=== PATIENT | female | born 1940 | race Two or more races ===

== ENCOUNTER 2021-01-01 20:11 | Inpatient (IN) | payer OTHER ==
[~2021-01-01] VITALS: Ht 160 cm; Wt 81.2 kg
[~2021-01-01 20:11] MED LIST: ALLO100T2 PO; AMLO-258 PO; ATEN-72 PO; ATOR40TA28 PO; CALC0.2521 PO; CLOP75TA60 PO; FURO40 PO; GLIP10 PO; HYDR25TA84 PO; LISI-894 PO; PRED20 PO; TERA5CAP77 PO
[2021-01-01 20:28] LABS: BASOPHILS % (AUTO) 0.9 % (0.0-2.0); HEMATOCRIT 32.1 % (36-46); HEMOGLOBIN 10.3 g/dL (12.0-16.0); LYMPHOCYTES # (AUTO) 3.1 K/uL (1.0-4.8); LYMPHOCYTES % (AUTO) 40.9 % (22.0-44.0); MEAN CORPUSCULAR VOLUME 91 fL (80-100); MONOCYTES # (AUTO) 0.8 K/uL (0.1-1.0); NEUTROPHILS # (AUTO) 3.3 K/uL (1.8-7.7); NEUTROPHILS % (AUTO) 43.2 % (40.0-70.0); PLATELET COUNT (AUTO) 254 K/uL (150-450); RED BLOOD CELL COUNT(AUTO) 3.54 MIL/uL (4.00-5.20); RED CELL DISTRIBUTION WIDTH 15.6 % (11.5-14.5)
[2021-01-01 20:40] LABS: CALCIUM, TOTAL 8.7 mg/dL (8.8-10.5); CREATININE 2.81 mg/dL (0.60-1.30); POTASSIUM 4.1 mmol/L (3.5-5.1)
[2021-01-01 20:41] LABS: ABG CARBOXYHEMOGLOBIN 0.3 % (0.0-1.5); ABG METHEMOGLOBIN 0.3 % (0.0-1.5); ABG OXYGEN SATURATION 99.6 % (95.0-98.0); SOURCE, BLOOD GAS ARTERIAL; TEMPERATURE, FAHRENHEIT, BG 98.6 FAHREN (96.0-98.6)
[2021-01-01] MEDS ORDERED: [UNRECOGNIZED DRUG - CODE] PO (20:42)
[2021-01-01] MEDS ORDERED: CHL25 PO (20:42)
[2021-01-01 20:44] LABS: ABG A-A DIFF O2 222.5 mmHg (10-20.0); ABG BASE EXCESS -6.7 mmol/L (-2.0-3.0); ABG HCO3 19.2 mmol/L (22.0-26.0); ABG OXYGEN CONTENT 15.6 mL/dL (15.0-23.0); ABG PCO2 47 mmHg (35-45); ABG TOTAL HEMOGLOBIN 10.3 G/dL (12.0-18.0); O2 DEVICE,BLOOD GAS BIPAP (ROOM AIR); SITE, BLOOD GAS RT RADIAL
[2021-01-01] MEDS ORDERED: ISOS10TA16 PO (20:44)
[2021-01-01] MEDS ORDERED: FUROSEMIDE 40 MG/4 ML VIAL IVP ONE (21:00)
[2021-01-01] MEDS ORDERED: ONDANSETRON HCL 4 MG/2 ML VIAL IVP PRN (21:00)
[2021-01-01 21:05] LABS: ALBUMIN 3.7 g/dL (3.4-5.0); BILIRUBIN,TOTAL 0.2 mg/dL (0.1-1.0)
[2021-01-01 21:14] LABS: COVID AG,FIA SOURCE NASOPHARYNGEAL
[2021-01-01] MEDS ORDERED: OXYC-26 PO (21:18)
[2021-01-01] MEDS: ACETAMINOPHEN 325 MG TABLET PO PRN (21:35)
[2021-01-01] MEDS ORDERED: BUMETANIDE 0.25 MG/ML 4 ML VIAL IVP ONE (21:45)
[2021-01-01 22:08] LABS: HEMOGLOBIN A1C 5.9 % (3.8-5.6)
[2021-01-01] MEDS ORDERED: DEXTROSE 50%-WATER 25 GM/50 ML SYRINGE IVP PRN (22:15)
[2021-01-01] MEDS ORDERED: *CLINICAL-LEVOFLOXACIN IVPB DOSING CLINICAL ONE (22:15)
[2021-01-01] MEDS ORDERED: HYDROmorphone 2 MG/ML VIAL IVP PRN (22:15)
[2021-01-01 22:17] LABS: % IRON SATURATION 17.3 % (22-44); RETICULOCYTE % (AUTO) 1.1 % (0.5-2.3)
[2021-01-01] MEDS ORDERED: LEVOFLOXACIN 500 MG/D5% WATER 100 ML IV ONE (22:30)
[2021-01-01 22:46] LABS: LACTIC ACID 2.9 mmol/L (0.4-2.0)
[2021-01-01] MEDS: NITROGLYCERIN 2% (1 GM=INCH) PACKET TP SCH (22:49)
[2021-01-01] MEDS ORDERED: ALBUTEROL SULFATE 2.5 MG/0.5 ML NEB SOLUTION NEB PRN (23:45)
[2021-01-01] MEDS: HEPARIN SODIUM,PORCINE 5,000 UNITS/ML VIAL SQ SCH (23:51)
[2021-01-02] VITALS (7 sets, daily range): BP systolic 135–159; BP diastolic 63–73
[2021-01-02] MEDS ORDERED: 0.9% SODIUM CHLORIDE 15 ML NEB SOLUTION NEB ONE (00:27)
[2021-01-02] MEDS: ACETAMINOPHEN 325 MG TABLET PO PRN (01:18)
[2021-01-02] MEDS ORDERED: HYDROmorphone 2 MG/ML VIAL IVP ONE (04:00)
[2021-01-02] MEDS: NITROGLYCERIN 2% (1 GM=INCH) PACKET TP SCH ×4 (06:08→23:33)
[2021-01-02] MEDS ORDERED: HYDROmorphone 2 MG/ML VIAL IVP PRN (06:15)
[2021-01-02] MEDS: INSULIN LISPRO 100 UNITS/ML SQ PRN ×2 (06:53→17:48)
[2021-01-02 07:10] LABS: CALCIUM, TOTAL 8.6 mg/dL (8.8-10.5); CREATININE 2.66 mg/dL (0.60-1.30); POTASSIUM 4.7 mmol/L (3.5-5.1)
[2021-01-02] MEDS: ETHYL ALCOHOL 62% ANTISEPTIC NASAL INHALANT 0.6 ML AMPUL NASAL SCH ×2 (08:20→20:59)
[2021-01-02] MEDS: AmLODIPine BESYLATE 10 MG TABLET PO SCH (08:21)
[2021-01-02] MEDS: ALLOPURINOL 100 MG TABLET PO SCH (08:21)
[2021-01-02] MEDS: HEPARIN SODIUM,PORCINE 5,000 UNITS/ML VIAL SQ SCH (08:21)
[2021-01-02] MEDS: CHLORTHALIDONE 25 MG TABLET PO SCH (08:22)
[2021-01-02] MEDS: HydrALAZINE HCL 50 MG TABLET PO SCH ×2 (08:22→20:59)
[2021-01-02] MEDS: CLOPIDOGREL BISULFATE 75 MG TABLET PO SCH (08:22)
[2021-01-02] MEDS: PredniSONE 20 MG TABLET PO SCH (08:22)
[2021-01-02] MEDS: CALCITRIOL 0.25 MCG CAPSULE PO SCH (08:22)
[2021-01-02] MEDS: TERAZOSIN HCL 5 MG CAPSULE PO SCH (08:22)
[2021-01-02] MEDS ORDERED: ISOSORBIDE DINITRATE 10 MG TABLET PO SCH (09:00)
[2021-01-02] MEDS ORDERED: ETHACRYNIC ACID 25 MG TABLET PO SCH (09:00)
[2021-01-02] MEDS ORDERED: ATORVASTATIN CALCIUM 40 MG TABLET PO SCH (09:00)
[2021-01-02] MEDS ORDERED: ATENOLOL 50 MG TABLET PO SCH (09:00)
[2021-01-02] MEDS ORDERED: HEPARIN SODIUM 25000 UNITS/D5W 250 ML IV PRN (10:15)
[2021-01-02] MEDS ORDERED: HEPARIN SODIUM,PORCINE 5,000 UNITS/ML VIAL IVP ONE (10:15)
[2021-01-02] MEDS ORDERED: HEPARIN SODIUM,PORCINE 5,000 UNITS/ML VIAL IVP PRN ×2 (10:15)
[2021-01-02 10:49] LABS: BASOPHILS % (AUTO) 0.4 % (0.0-2.0); EOSINOPHILS % (AUTO) 0 % (1.0-6.0); HEMATOCRIT 29.2 % (36-46); HEMOGLOBIN 9.5 g/dL (12.0-16.0); LYMPHOCYTES # (AUTO) 0.5 K/uL (1.0-4.8); LYMPHOCYTES % (AUTO) 7.4 % (22.0-44.0); MEAN CORPUSCULAR HEMOGLOBIN 29.3 pg (26.0-34.0); MEAN CORPUSCULAR HGB CONC 32.6 G/dL (31.0-37.0); MEAN CORPUSCULAR VOLUME 90 fL (80-100); MONOCYTES # (AUTO) 0.2 K/uL (0.1-1.0); MONOCYTES % (AUTO) 2.8 % (2.0-9.0); NEUTROPHILS # (AUTO) 6.5 K/uL (1.8-7.7); PLATELET COUNT (AUTO) 225 K/uL (150-450); RED BLOOD CELL COUNT(AUTO) 3.25 MIL/uL (4.00-5.20); RED CELL DISTRIBUTION WIDTH 15.4 % (11.5-14.5)
[2021-01-02 10:51] LABS: NEUTROPHILS % (AUTO) 89.4 % (40.0-70.0)
[2021-01-02 11:08] LABS: INR 1.1 (0.9-1.1); PROTHROMBIN TIME 11.2 SEC (9.4-11.6)
[2021-01-02 11:13] LABS: GLUCOSE,POINT OF CARE 185 MG/DL (70-110)
[2021-01-02] MEDS: ASPIRIN 81 MG DR TABLET PO SCH (11:20)
[2021-01-02 14:46] LABS: GLUCOSE,POINT OF CARE 124 MG/DL (70-110)
[2021-01-02 19:22] LABS: GLUCOSE,POINT OF CARE 148 MG/DL (70-110)
[2021-01-02] MEDS: ETHACRYNIC ACID 25 MG TABLET PO SCH (20:59)
[2021-01-02] MEDS: METOPROLOL TARTRATE 25 MG TABLET PO SCH (20:59)
[2021-01-02] MEDS ORDERED: TERAZOSIN HCL 5 MG CAPSULE PO SCH (21:00)
[2021-01-02 21:28] LABS: GLUCOSE,POINT OF CARE 90 MG/DL (70-110)
[2021-01-03] VITALS: BP 143/62
[2021-01-03 03:18] LABS: BASOPHILS % (AUTO) 0.3 % (0.0-2.0); EOSINOPHILS % (AUTO) 0 % (1.0-6.0); HEMATOCRIT 30.3 % (36-46); HEMOGLOBIN 9.7 g/dL (12.0-16.0); LYMPHOCYTES # (AUTO) 1.1 K/uL (1.0-4.8); LYMPHOCYTES % (AUTO) 8.5 % (22.0-44.0); MEAN CORPUSCULAR HEMOGLOBIN 28.6 pg (26.0-34.0); MEAN CORPUSCULAR VOLUME 90 fL (80-100); MONOCYTES % (AUTO) 7.8 % (2.0-9.0); NEUTROPHILS # (AUTO) 10.6 K/uL (1.8-7.7); NEUTROPHILS % (AUTO) 83.4 % (40.0-70.0); PLATELET COUNT (AUTO) 225 K/uL (150-450); RED BLOOD CELL COUNT(AUTO) 3.39 MIL/uL (4.00-5.20); RED CELL DISTRIBUTION WIDTH 15.2 % (11.5-14.5)
[2021-01-03 03:32] LABS: ALBUMIN 3.2 g/dL (3.4-5.0); BILIRUBIN,TOTAL 0.3 mg/dL (0.1-1.0); CALCIUM, TOTAL 8.7 mg/dL (8.8-10.5); CHOL/HDL RATIO 2.4 (3.9-5.7); CREATININE 2.7 mg/dL (0.60-1.30); PHOSPHORUS 4.3 mg/dL (2.5-4.9); POTASSIUM 4.4 mmol/L (3.5-5.1); TOTAL PROTEIN, SERUM 7.2 g/dL (6.4-8.2)
[2021-01-03 04:00] VITALS: BP 150/72
[2021-01-03] MEDS: NITROGLYCERIN 2% (1 GM=INCH) PACKET TP SCH ×3 (05:17→17:27)
[2021-01-03 08:00] VITALS: BP 158/67
[2021-01-03] MEDS: METOPROLOL TARTRATE 25 MG TABLET PO SCH (08:33)
[2021-01-03] MEDS: PredniSONE 20 MG TABLET PO SCH (08:34)
[2021-01-03] MEDS: CALCITRIOL 0.25 MCG CAPSULE PO SCH (08:35)
[2021-01-03] MEDS: ETHACRYNIC ACID 25 MG TABLET PO SCH (08:35)
[2021-01-03] MEDS: TERAZOSIN HCL 5 MG CAPSULE PO SCH (08:35)
[2021-01-03] MEDS: ETHYL ALCOHOL 62% ANTISEPTIC NASAL INHALANT 0.6 ML AMPUL NASAL SCH (08:35)
[2021-01-03] MEDS: ASPIRIN 81 MG DR TABLET PO SCH (08:36)
[2021-01-03] MEDS: HydrALAZINE HCL 50 MG TABLET PO SCH (08:36)
[2021-01-03] MEDS: CHLORTHALIDONE 25 MG TABLET PO SCH (08:36)
[2021-01-03] MEDS: AmLODIPine BESYLATE 10 MG TABLET PO SCH (08:36)
[2021-01-03] MEDS: CLOPIDOGREL BISULFATE 75 MG TABLET PO SCH (08:36)
[2021-01-03] MEDS: ALLOPURINOL 100 MG TABLET PO SCH (08:36)
[2021-01-03] MEDS ORDERED: ATORVASTATIN CALCIUM 40 MG TABLET PO SCH (09:00)
[2021-01-03 09:49] LABS: GLUCOSE,POINT OF CARE 107 MG/DL (70-110)
[2021-01-03] MEDS: INSULIN LISPRO 100 UNITS/ML SQ PRN ×2 (11:41→17:24)
[2021-01-03 12:00] VITALS: BP 140/62
[2021-01-03 16:00] VITALS: BP 142/59
[2021-01-03] MEDS ORDERED: METOPROLOL TARTRATE 50 MG TABLET PO SCH (21:00)
[2021-01-03] MEDS ORDERED: LEVOFLOXACIN 500 MG/D5% WATER 100 ML IV SCH (21:00)
[2021-01-03 21:41] LABS: GLUCOSE,POINT OF CARE 196 MG/DL (70-110)
[2021-01-03 22:43] LABS: GLUCOSE,POINT OF CARE 146 MG/DL (70-110)
[2021-01-03] MEDS ORDERED: LEVOFLOXACIN 250 MG/D5% WATER 50 ML IV SCH (23:00)
== END 2021-01-03 18:11 | disposition short-term general hospital (02) | DRG 280 ==
LOC: EDUNIT# 20:11 → EMS 20:15 → ICU 22:30
PROVIDERS: ADMIT Internal Medicine; ATTEND Internal Medicine
PROC: 5A09357 Assistance with Respiratory Ventilation, Less than 24 Consecutive Hours, Continuous Positive Airway Pressure (ICD-10-PCS; principal; 2021-01-01)
DX: I13.2 Hypertensive heart and chronic kidney disease with heart failure and with stage 5 chronic kidney disease, or end stage renal disease (principal); J96.02 Acute respiratory failure with hypercapnia; I21.4 Non-ST elevation (NSTEMI) myocardial infarction; J18.9 Pneumonia, unspecified organism; I50.41 Acute combined systolic (congestive) and diastolic (congestive) heart failure; N18.6 End stage renal disease; J96.01 Acute respiratory failure with hypoxia; N17.9 Acute kidney failure, unspecified; J91.8 Pleural effusion in other conditions classified elsewhere; I25.10 Atherosclerotic heart disease of native coronary artery without angina pectoris; D64.9 Anemia, unspecified; E11.22 Type 2 diabetes mellitus with diabetic chronic kidney disease; N28.1 Cyst of kidney, acquired; Z20.822 Contact with and (suspected) exposure to COVID-19; G89.29 Other chronic pain; Z79.02 Long term (current) use of antithrombotics/antiplatelets; Z79.52 Long term (current) use of systemic steroids; Z79.84 Long term (current) use of oral hypoglycemic drugs; Z79.899 Other long term (current) drug therapy; Z88.2 Allergy status to sulfonamides; Z88.0 Allergy status to penicillin
CPT/HCPCS: 71045; 76770; 80048; 80053; 80061; 82550; 82805; 82962; 83036; 83540; 83550; 83605; 83735; 83880; 84100; 84145; 84484; 85025; 85045; 85610; 85730; 87040; 87081; 93005; 93306; 94640; 94660; 99285; G0378; J1170; J1644; J1956; J2405; J3490; Q9967; 36415-L1; 36415-TC; J7613

== ENCOUNTER 2021-03-23 08:15 | Emergency (ER) | payer OTHER ==
[~2021-03-23] VITALS: Ht 160 cm; Wt 89.3 kg
[~2021-03-23 08:15] MED LIST changes: +CHL25 PO; -FURO40 PO; +ISOS10TA16 PO; +OXYC-26 PO; +[UNRECOGNIZED DRUG - CODE] PO
[2021-03-23] MEDS ORDERED: BUMETANIDE 0.25 MG/ML 4 ML VIAL IVP ONE (08:30)
[2021-03-23] MEDS ORDERED: DILTIAZEM HCL 5 MG/ML 5 ML VIAL IVP ONE ×2 (08:30→09:00)
[2021-03-23 08:46] LABS: BASOPHILS % (AUTO) 0.7 % (0.0-2.0); EOSINOPHILS % (AUTO) 7.8 % (1.0-6.0); HEMATOCRIT 32.9 % (36-46); HEMOGLOBIN 10.7 g/dL (12.0-16.0); LYMPHOCYTES # (AUTO) 3.2 K/uL (1.0-4.8); MEAN CORPUSCULAR HEMOGLOBIN 29.2 pg (26.0-34.0); MEAN CORPUSCULAR HGB CONC 32.5 G/dL (31.0-37.0); MEAN CORPUSCULAR VOLUME 90 fL (80-100); MONOCYTES % (AUTO) 11.4 % (2.0-9.0); NEUTROPHILS # (AUTO) 3.9 K/uL (1.8-7.7); NEUTROPHILS % (AUTO) 44.1 % (40.0-70.0); PLATELET COUNT (AUTO) 249 K/uL (150-450); RED BLOOD CELL COUNT(AUTO) 3.66 MIL/uL (4.00-5.20); RED CELL DISTRIBUTION WIDTH 16.7 % (11.5-14.5)
[2021-03-23 08:46] LABS: ABG BASE EXCESS -3.6 mmol/L (-2.0-3.0); ABG CARBOXYHEMOGLOBIN 0.3 % (0.0-1.5); ABG HCO3 20.7 mmol/L (22.0-26.0); ABG METHEMOGLOBIN 0.2 % (0.0-1.5); ABG OXYGEN CONTENT 13.9 mL/dL (15.0-23.0); ABG OXYGEN SATURATION 88.6 % (95.0-98.0); ABG OXYHEMOGLOBIN 88.2 % (94.0-100.0); ABG PCO2 66 mmHg (35-45); ABG TOTAL HEMOGLOBIN 11.2 G/dL (12.0-18.0); PO2, ARTERIAL BG 65.3 mmHg (71.0-79.0); SOURCE, BLOOD GAS ARTERIAL; TEMPERATURE, FAHRENHEIT, BG 98.6 FAHREN (96.0-98.6)
[2021-03-23 08:48] LABS: ABG PH 7.191 (7.35-7.450); SITE, BLOOD GAS LFT RADIAL
[2021-03-23 08:49] LABS: CPAP, BG 15 cm H2O; O2 DEVICE,BLOOD GAS CPAP (ROOM AIR)
[2021-03-23 08:52] LABS: CALCIUM, TOTAL 8.9 mg/dL (8.8-10.5); CREATININE 2.57 mg/dL (0.60-1.30); POTASSIUM 3.5 mmol/L (3.5-5.1)
[2021-03-23 08:58] LABS: ALBUMIN 3.5 g/dL (3.4-5.0); BILIRUBIN,TOTAL 0.3 mg/dL (0.1-1.0)
[2021-03-23 09:15] VITALS: BP 163/36
[2021-03-23] MEDS ORDERED: ASPIRIN 300 MG RECTAL SUPPOSITORY PR ONE (09:15)
[2021-03-23 09:44] LABS: COVID AG,FIA SOURCE NASOPHARYNGEAL
== END 2021-03-23 09:41 | disposition short-term general hospital (02) ==
LOC: EMS 08:37
DX: I21.9 Acute myocardial infarction, unspecified (principal); J96.00 Acute respiratory failure, unspecified whether with hypoxia or hypercapnia; N28.9 Disorder of kidney and ureter, unspecified; I11.0 Hypertensive heart disease with heart failure; I50.9 Heart failure, unspecified; J44.9 Chronic obstructive pulmonary disease, unspecified; Z88.0 Allergy status to penicillin; Z88.2 Allergy status to sulfonamides; Z88.1 Allergy status to other antibiotic agents; Z79.899 Other long term (current) drug therapy; Z20.822 Contact with and (suspected) exposure to COVID-19
CPT/HCPCS: 36415; 36600; 71045; 80053; 82805; 83880; 84484; 85025; 87426; 93005; 94660; 96374; 99291; C9803; J3490 ×2; 51702

== ENCOUNTER 2022-05-30 12:55 | Inpatient (IN) | payer OTHER ==
[~2022-05-30] VITALS: Ht 154.9 cm; Wt 80.8 kg
[~2022-05-30 12:55] MED LIST changes: +ALLO-97 PO; -ALLO100T2 PO; -GLIP10 PO; +GLIP10TA10 PO; +PRED-554 PO; -PRED20 PO
[2022-05-30] MEDS ORDERED: BUMETANIDE 0.25 MG/ML 4 ML VIAL IVP ONE ×2 (13:15→14:15)
[2022-05-30 13:42] LABS: BASOPHILS % (AUTO) 0.9 % (0.0-2.0); EOSINOPHILS % (AUTO) 3.3 % (1.0-6.0); HEMATOCRIT 34.6 % (36-46); HEMOGLOBIN 11.1 g/dL (12.0-16.0); LYMPHOCYTES % (AUTO) 13.8 % (22.0-44.0); MEAN CORPUSCULAR HEMOGLOBIN 29.1 pg (26.0-34.0); MEAN CORPUSCULAR HGB CONC 32.2 G/dL (31.0-37.0); MEAN CORPUSCULAR VOLUME 91 fL (80-100); MONOCYTES # (AUTO) 0.4 K/uL (0.1-1.0); MONOCYTES % (AUTO) 5.7 % (2.0-9.0); NEUTROPHILS # (AUTO) 5.3 K/uL (1.8-7.7); NEUTROPHILS % (AUTO) 76.3 % (40.0-70.0); PLATELET COUNT (AUTO) 245 K/uL (150-450); RED BLOOD CELL COUNT(AUTO) 3.82 MIL/uL (4.00-5.20); RED CELL DISTRIBUTION WIDTH 16.5 % (11.5-14.5)
[2022-05-30 13:48] LABS: CALCIUM, TOTAL 8.7 mg/dL (8.8-10.5); CREATININE 2.59 mg/dL (0.60-1.30); POTASSIUM 4.1 mmol/L (3.5-5.1)
[2022-05-30 13:54] LABS: PROTHROMBIN TIME 10.9 SEC (9.4-11.6)
[2022-05-30 14:12] LABS: ALBUMIN 3.7 g/dL (3.4-5.0); BILIRUBIN,TOTAL 0.3 mg/dL (0.1-1.0)
[2022-05-30] MEDS ORDERED: INSULIN LISPRO 100 UNITS/ML SQ PRN (14:45)
[2022-05-30] MEDS ORDERED: DEXTROSE 50%-WATER 25 GM/50 ML SYRINGE IVP PRN (14:45)
[2022-05-30] MEDS ORDERED: ACETAMINOPHEN 325 MG TABLET PO PRN (14:45)
[2022-05-30] MEDS ORDERED: CloNIDine HCL 0.1 MG TABLET PO PRN (14:45)
[2022-05-30] MEDS ORDERED: ONDANSETRON HCL 4 MG/2 ML VIAL IVP PRN (14:45)
[2022-05-30 15:22] LABS: APPEARANCE,URINE CLEAR (CLEAR); BILIRUBIN,URINE NEGATIVE (NEGATIVE); GLUCOSE, URINE (UA) NEGATIVE (NEGATIVE); KETONES,URINE NEGATIVE (NEGATIVE); LEUKOCYTE ESTERASE ,URINE NEGATIVE (NEGATIVE); NITRATE,URINE NEGATIVE (NEGATIVE); OCCULT BLOOD,URINE NEGATIVE (NEGATIVE); PH,URINE 5.5 (5.0-8.0); PROTEIN,URINE 100-200,SEE CONFIRM mg/dL (NEGATIVE); SPECIFIC GRAVITIY, URINE 1.009 (1.003-1.030); UROBILINOGEN,URINE <=1.0 mg/dL (<=1.0)
[2022-05-30] MEDS: LOSARTAN POTASSIUM 25 MG TABLET PO SCH ×2 (15:25→21:20)
[2022-05-30] MEDS: AmLODIPine BESYLATE 10 MG TABLET PO SCH (15:25)
[2022-05-30 15:26] LABS: SULFOSALICYLIC ACID,URINE 2+ (Negative)
[2022-05-30] MEDS ORDERED: MORPHINE SULFATE 4 MG/ML SYRINGE IM ONE (15:30)
[2022-05-30 15:32] LABS: ABG BASE EXCESS -2.5 mmol/L (-2.0-3.0); ABG HCO3 22.6 mmol/L (22.0-26.0); ABG METHEMOGLOBIN 0.2 % (0.0-1.5); ABG OXYGEN CONTENT 16.7 mL/dL (15.0-23.0); ABG OXYGEN SATURATION 98.9 % (95.0-98.0); ABG OXYHEMOGLOBIN 98.7 % (94.0-100.0); ABG PCO2 40 mmHg (35-45); ABG PH 7.371 (7.35-7.450); ABG TOTAL HEMOGLOBIN 11.8 G/dL (12.0-18.0); PO2, ARTERIAL BG 162.1 mmHg (71.0-79.0); SOURCE, BLOOD GAS ARTERIAL; TEMPERATURE, FAHRENHEIT, BG 97.9 FAHREN (96.0-98.6)
[2022-05-30 15:33] LABS: O2 DEVICE,BLOOD GAS BIPAP (ROOM AIR); SITE, BLOOD GAS RT BRACHIAL; SPONTANEOUS VT, BG 580 ml
[2022-05-30 15:41] LABS: BACTERIA,URINE None Seen /HPF (None Seen); RBC,URINE 0-2 /HPF (0-2); SQUAMOUS EPITHELIAL CELL,UR Few /LPF (None Seen); WBC,URINE 0-2 /HPF (0-5)
[2022-05-30] MEDS: HEPARIN SODIUM,PORCINE 5,000 UNITS/ML VIAL SQ SCH ×2 (16:22→23:34)
[2022-05-30 16:30] LABS: COVID AG,FIA SOURCE NASAL SWAB
[2022-05-30 18:46] LABS: GLUCOSE,POINT OF CARE 113 MG/DL (70-110)
[2022-05-30] MEDS: DOCUSATE SODIUM 100 MG CAPSULE PO SCH (21:00)
[2022-05-30 23:49] VITALS: BP 167/85
[2022-05-31] MEDS ORDERED: MORPHINE SULFATE 2 MG/ML SYRINGE IVP PRN (03:00)
[2022-05-31 06:00] VITALS: BP 149/50
[2022-05-31 07:41] VITALS: BP 154/59
[2022-05-31] MEDS: HEPARIN SODIUM,PORCINE 5,000 UNITS/ML VIAL SQ SCH ×2 (08:14→16:00)
[2022-05-31] MEDS: AmLODIPine BESYLATE 10 MG TABLET PO SCH (08:15)
[2022-05-31] MEDS: DOCUSATE SODIUM 100 MG CAPSULE PO SCH (08:15)
[2022-05-31] MEDS: LOSARTAN POTASSIUM 25 MG TABLET PO SCH (08:15)
[2022-05-31] MEDS ORDERED: FAMOTIDINE 20 MG TABLET PO SCH (09:00)
[2022-05-31] MEDS ORDERED: BUMETANIDE 0.25 MG/ML 4 ML VIAL IVP SCH (09:00)
[2022-05-31] MEDS ORDERED: ASPIRIN 81 MG CHEWABLE TABLET PO SCH (09:00)
[2022-05-31] MEDS ORDERED: METOPROLOL SUCCINATE 25 MG ER TABLET PO SCH (09:00)
[2022-05-31] MEDS ORDERED: HYDROCODONE/ACETAMINOPHEN 5-325 MG TABLET PO PRN (10:45)
[2022-05-31] MEDS ORDERED: LOSARTAN POTASSIUM 25 MG TABLET PO SCH (10:45)
[2022-05-31 11:09] VITALS: BP 150/52
[2022-05-31 16:08] VITALS: BP 152/56
[2022-05-31] MEDS ORDERED: LOSARTAN POTASSIUM 50 MG TABLET PO SCH (21:00)
[2022-05-31 23:16] LABS: GLUCOMETER DEV NAME(LOC) 5N.1C; GLUCOSE,POINT OF CARE 101 MG/DL (70-110)
[2022-05-31 23:16] LABS: GLUCOMETER DEV NAME(LOC) 5N.1C; GLUCOSE,POINT OF CARE 88 MG/DL (70-110)
[2022-06-01 05:25] LABS: GLUCOMETER DEV NAME(LOC) 5S.2C; GLUCOSE,POINT OF CARE 158 MG/DL (70-110)
[2022-06-01] MEDS ORDERED: CLOPIDOGREL BISULFATE 75 MG TABLET PO SCH (09:00)
[2022-06-01] MEDS ORDERED: ATORVASTATIN CALCIUM 20 MG TABLET PO SCH (09:00)
== END 2022-05-31 18:45 | disposition short-term general hospital (02) | DRG 189 ==
LOC: EMS 13:00 → 5S 22:45 → UNDOADMIN 22:55 → 5S 22:55
PROVIDERS: ADMIT Internal Medicine; ATTEND Internal Medicine
PROC: 5A09357 Assistance with Respiratory Ventilation, Less than 24 Consecutive Hours, Continuous Positive Airway Pressure (ICD-10-PCS; principal; 2022-05-30)
DX: J96.01 Acute respiratory failure with hypoxia (principal); I50.33 Acute on chronic diastolic (congestive) heart failure; I13.0 Hypertensive heart and chronic kidney disease with heart failure and stage 1 through stage 4 chronic kidney disease, or unspecified chronic kidney disease; N18.4 Chronic kidney disease, stage 4 (severe); E11.22 Type 2 diabetes mellitus with diabetic chronic kidney disease; E11.319 Type 2 diabetes mellitus with unspecified diabetic retinopathy without macular edema; E66.01 Morbid (severe) obesity due to excess calories; I25.10 Atherosclerotic heart disease of native coronary artery without angina pectoris; I34.0 Nonrheumatic mitral (valve) insufficiency; I48.91 Unspecified atrial fibrillation; Z20.822 Contact with and (suspected) exposure to COVID-19; J44.9 Chronic obstructive pulmonary disease, unspecified; Z88.0 Allergy status to penicillin; Z88.2 Allergy status to sulfonamides; Z88.1 Allergy status to other antibiotic agents; Z79.899 Other long term (current) drug therapy
CPT/HCPCS: 36600; 71045; 80053; 81001; 81002; 81003; 82550; 82805; 82962; 83880; 84484; 85025; 85610; 85730; 93005; 94660; 99285; 99291; J1644; J2270; J3490; 36415-L1; 36415-TC

== ENCOUNTER 2023-01-07 07:38 | Emergency (ER) | payer OTHER ==
[~2023-01-07] VITALS: Ht 165.1 cm; Wt 84.0 kg
[2023-01-07 07:45] VITALS: BP 0/0; PULSE 122; RESP 16
== END 2023-01-07 09:55 ==
LOC: EMS 07:38
DX: I46.9 Cardiac arrest, cause unspecified (principal); I11.0 Hypertensive heart disease with heart failure; I50.9 Heart failure, unspecified; E11.9 Type 2 diabetes mellitus without complications; J45.909 Unspecified asthma, uncomplicated; J44.9 Chronic obstructive pulmonary disease, unspecified; I25.10 Atherosclerotic heart disease of native coronary artery without angina pectoris; I48.91 Unspecified atrial fibrillation; Z88.0 Allergy status to penicillin; Z88.2 Allergy status to sulfonamides; Z88.8 Allergy status to other drugs, medicaments and biological substances
CPT/HCPCS: 92950; 99291; Z7502